=== PATIENT | male | born 1935 | race Caucasian/White ===

== ENCOUNTER 2016-08-21 18:10 | Emergency (ER) | payer OTHER ==
[~2016-08-21] VITALS: Ht 167.6 cm; Wt 72.1 kg
[2016-08-21 18:10] VITALS: BP_SYST 130
[~2016-08-21 18:10] MED LIST: ASPI81TA2 PO; CLOP75TA2 PO; LIP40 PO; LISI1TAB3 PO; METO25TA3 PO; NITSL SL; TAMS-11 PO
--- NOTE | 2016-08-21 18:10 | NUR ---
Patient triaged and placed in waiting room. VSS and patient appears in no acute distress at this time. Accompanied by SELF, awaiting available bed, and MD notified of need for MSE.
--- NOTE | 2016-08-21 19:59 | NUR ---
Patient to ER chair 1 for evaluation.
--- NOTE | 2016-08-21 20:08 | NUR ---
JOJO Rodriguez in hallway examining patient
--- NOTE | 2016-08-21 20:09 | NUR ---
Pt brought himself into the ER in stable condition. Pt c/o right middle finger pain 6/10 x2 days. Pt stated that he was heavy lifting 2 days ago. Pt does not recall if he was bitten by something or injury from lifting. Pt states that finger is throbbing and swollen. -sob -chest pain. No acute distress noted at this time, will continue to montior
[2016-08-21] MEDS ORDERED: ACETAMINOPHEN 500 MG TABLET PO ONE (20:30)
[2016-08-21 20:34] VITALS: BP_SYST 130
--- NOTE | 2016-08-21 20:34 | NUR ---
Patient given written and verbal discharge instructions and verbalizes understanding. ER FRAUD PREVENTION ANALYST Jennifer discussed with patient the results and treatment provided. Patient in stable condition. ID arm band removed. Rx of Tylenol and Keflex given. Patient educated on pain management and to follow up with PMD. Pain Scale 2/10. Opportunity for questions provided and answered.
== END 2016-08-21 20:34 | disposition home or self-care (01) ==
LOC: SED 18:10
DX: L03.011 Cellulitis of right finger (principal); I10 Essential (primary) hypertension; I25.2 Old myocardial infarction; E78.00 Pure hypercholesterolemia, unspecified; Z95.1 Presence of aortocoronary bypass graft; Z79.82 Long term (current) use of aspirin
CPT/HCPCS: 73140-TC; 99284

== ENCOUNTER 2020-07-09 13:32 | Emergency (ER) | payer OTHER ==
[~2020-07-09] VITALS: Ht 167.6 cm; Wt 74.8 kg
[~2020-07-09 13:32] MED LIST changes: +ASPI-1155 PO; -ASPI81TA2 PO
[2020-07-09 13:36] VITALS: BP_SYST 152
[2020-07-09 14:19] LABS: BASOPHILS # (AUTO) 0.1 K/uL (0.0-0.2); BASOPHILS % (AUTO) 1.1 % (0.0-2.0); EOSINOPHILS # (AUTO) 0.2 K/uL (0.0-0.4); EOSINOPHILS % (AUTO) 3.3 % (0.0-4.0); HEMATOCRIT 38.4 % (36-54); HEMOGLOBIN 12.8 g/dL (14.0-18.0); LYMPHOCYTES # (AUTO) 1.5 K/uL (1.0-5.5); LYMPHOCYTES % (AUTO) 19.9 % (20.5-51.5); MEAN CORPUSCULAR HEMOGLOBIN 30 pg (27-31); MEAN CORPUSCULAR HGB CONC 33 % (32-36); MEAN CORPUSCULAR VOLUME 90 fL (79.0-98.0); MONOCYTES # (AUTO) 0.6 K/uL (0.0-1.0); MONOCYTES % (AUTO) 8.3 % (1.7-9.3); NEUTROPHILS % (AUTO) 67.4 % (40.0-70.0); PLATELET COUNT (AUTO) 326 K/uL (130-430); RED BLOOD CELL COUNT(AUTO) 4.26 MIL/uL (4.2-6.2); RED CELL DISTRIBUTION WIDTH 13.2 % (9.0-15.0); WHITE BLOOD COUNT (AUTO) 7.5 K/uL (4.8-10.8)
[2020-07-09 14:26] LABS: C-REACTIVE PROTEIN QUANT < 0.2 mg/dL (0-0.5)
[2020-07-09 14:29] LABS: INR 0.9 (0.80-1.20); PROTHROMBIN TIME 9.5 SECS (9.5-12.5)
[2020-07-09 14:30] LABS: CHLORIDE 107 mmol/L (98-107); POTASSIUM 4.7 mmol/L (3.5-5.1); SODIUM SERUM 141 mmol/L (136-145)
[2020-07-09 14:31] LABS: ALANINE AMINOTRANSFERASE 21 U/L (12-78); ALBUMIN 3.2 g/dL (3.4-4.8); ANION GAP 7 (5-15); ASPARTATE AMINOTRANSFERASE 22 U/L (10-37); CALCIUM 8.3 mg/dL (8.4-11.0); CREATININE 1.36 mg/dL (0.55-1.30); GLUCOSE 86 mg/dL (70-99); TOTAL BILIRUBIN 0.3 mg/dL (0.0-1.0); UREA NITROGEN, BLOOD 23 mg/dL (8-21); URIC ACID 7.8 mg/dL (2.4-7.0)
[2020-07-09] MEDS ORDERED: KETOROLAC TROMETHAMINE 30 MG VIAL IM ONE (15:00)
[2020-07-09] MEDS ORDERED: HYDROcodone/ACETAMIN 10-325 MG TAB PO ONE (15:00)
[2020-07-09 15:04] LABS: ERYTHROCYTE SEDIMENTATION RATE 19 MM/HR (0-15)
[2020-07-09] MEDS ORDERED: HYDR-4272 PO (15:17)
[2020-07-09 16:00] VITALS: BP_SYST 152
== END 2020-07-09 16:01 | disposition home or self-care (01) ==
LOC: SED 13:32
DX: S43.52XA Sprain of left acromioclavicular joint, initial encounter (principal); I10 Essential (primary) hypertension; I25.2 Old myocardial infarction; N28.9 Disorder of kidney and ureter, unspecified; E78.00 Pure hypercholesterolemia, unspecified; N40.0 Benign prostatic hyperplasia without lower urinary tract symptoms; Z79.899 Other long term (current) drug therapy; Z79.82 Long term (current) use of aspirin; X58.XXXA Exposure to other specified factors, initial encounter; Y93.89 Activity, other specified; Y92.89 Other specified places as the place of occurrence of the external cause; Y99.8 Other external cause status
CPT/HCPCS: 36415; 70450; 71045; 73030; 80053; 82550; 84484; 84550; 85025; 85610; 85651; 85730; 86140; 93005; 96372; 99285; J1885